=== PATIENT | female | born 1960 ===

== ENCOUNTER 2017-02-19 10:08 | Day surgery (SDC) | payer OTHER, MEDICAID ==
[2017-02-19] MEDS ORDERED: Propofol 10 mg/ml Inj (20 ML) ONE (10:26)
[2017-02-19] MEDS ORDERED: Lactated Ringer's 500 ML IV ONE (10:32)
[2017-02-19 11:10] VITALS: TEMP 97.2
[2017-02-19 11:21] VITALS: BP 109/65; PULSE 81; RESP 15; O2SAT 97
== END 2017-02-19 11:20 | disposition home or self-care (01) ==
LOC: H.ENDO 10:08
PROVIDERS: ATTEND Internal Medicine Gastroenterology
DX: Z86.010 Personal history of colon polyps (principal)
CPT/HCPCS: 45378; J2704; J7120